=== PATIENT | female | born 1980 | race American Indian/Alaskan Native ===

== ENCOUNTER 2017-03-05 12:47 | Outpatient (CLI) | payer OTHER ==
--- NOTE | 2017-03-05 14:34 | Mammography Report ---
BILATERAL MAMMOGRAM with CAD: HISTORY: Baseline cancer screening with CAD. FINDINGS: The breast tissue is heterogeneously dense, which could obscure detection of small masses (approximately 50%-75% glandular). No mass, distortion, suspicious calcification, or skin change is seen. IMPRESSION: Negative mammogram. There is no mammographic evidence of malignancy. RECOMMENDATION: Follow-up per ACS guidelines. BI-RADS CATEGORY: 1 = Negative ACR BI-RADS MAMMOGRAPHIC CODES: 0 = Needs additional imaging evaluation; 1 = Negative; 2 = Benign; 3 = Probably benign; 4 = Suspicious; 5 = Malignant; 6 = Known biopsy-proven malignancy COMMENT: 1. Dense breast tissue, i.e., adenosis, fibrocystic changes, etc., may obscure an underlying neoplasm. 2. Approximately 10% of cancers are not detected with mammography. 3. A negative mammography report should not delay biopsy if a clinically suspicious mass is present. COMMENT: Patient follow-up letters are generated in [employer].
== END 2017-03-05 12:48 | disposition home or self-care (01) ==
LOC: MAMMO 12:47
PROVIDERS: ATTEND Plastic Surgery
DX: Z12.31 Encounter for screening mammogram for malignant neoplasm of breast (principal)
CPT/HCPCS: 77067; G0202